=== PATIENT | female | born 2000 | race Caucasian/White ===

== ENCOUNTER → 2022-01-19 | Outpatient (CLI) | payer BC, OTHER | END | disposition home or self-care (01) | LOC: LABWHC1 19:22 | PROVIDERS: ATTEND Emergency Medicine | DX: Z20.822 Contact with and (suspected) exposure to COVID-19 (principal) | CPT/HCPCS: 87635 ==

== ENCOUNTER 2022-02-27 21:55 | Emergency (ER) | payer BC ==
--- NOTE | 2022-02-27 22:25 | ED ---
Chest Pain HPI - General Chief Complaint: Chest Pain Stated Complaint: Chest pain,sore throat Time Seen by Provider: 02/27/22 21:58 Source: patient, RN notes reviewed Mode of arrival: ambulatory Limitations: no limitations - History of Present Illness Initial Comments: This is a pleasant 21-year-old female presents with chest pressure which starts in her anterior chest and radiates through the back. Patient was concerned she might have COVID-19. She has been tested several times over the past 2 weeks. She states that 2 weeks ago she had 3 negative COVID-19 test and eventually decided that her symptoms were due to ALLERGIES. Patient states she now has had a sore throat for 3 days and now has felt chest pressure which has been present since yesterday. Constant, no alleviating or exacerbating factors. Negative outpatient COVID-19 test. Patient does have subdermal progesterone based control. Patient states she has not had a menstrual period since October having the device placed. Patient has no history of blood clots. No history of recent surgeries. No history of immobilization. Patient is a nonsmoker but does vape. No headache, no fever or chills, no changes in vision or hearing, no sore throat or difficulty with speech, no neck pain, SENSATION of shortness of breath, no abdominal pain, no nausea or vomiting, no changes in urination or bowel movements, no numbness or tingling, no extremity pain, no skin rashes or lesions. Past medical, surgical, social, and family history reviewed. - Related Data Allergies Allergy/AdvReac Type Severity Reaction Status Date / Time No Known Allergies Allergy Verified 02/27/22 22:00 Review of Systems ROS Statement: Those systems with pertinent positive or pertinent negative responses have been documented in the HPI. ROS Other: All systems not noted in ROS Statement are negative. EKG Findings - EKG Comments: EKG Findings:: EKG done at 2205 and read by the ED attending physician reveals rhythm with a rate of 87. Minimal voltage criteria for LVH patient does have poor R-wave progression with computerized Q-wave being red in V3 and V4 normal intervals. No comparison study. Past Medical History Past Medical History: No Reported History History of Any Multi-Drug Resistant Organisms: None Reported Past Surgical History: No Surgical Hx Reported Past Psychological History: No Psychological Hx Reported Smoking Status: Current every day smoker Past Alcohol Use History: Occasional Past Drug Use History: None Reported General Exam Limitations: no limitations General appearance: alert, in no apparent distress Head exam: Present: atraumatic, normocephalic, normal inspection Eye exam: Present: normal appearance, PERRL, EOMI. Absent: scleral icterus, conjunctival injection, periorbital swelling ENT exam: Present: normal exam, mucous membranes moist, normal external ear exam Neck exam: Present: normal inspection, full ROM. Absent: tenderness, meningismus, lymphadenopathy Respiratory exam: Present: normal lung sounds bilaterally, chest wall tenderness. Absent: respiratory distress, wheezes, rales, rhonchi, stridor, accessory muscle use, decreased breath sounds, prolonged expiratory Cardiovascular Exam: Present: regular rate, normal rhythm, normal heart sounds. Absent: systolic murmur, diastolic murmur, rubs, gallop, clicks GI/Abdominal exam: Present: soft, normal bowel sounds. Absent: distended, tenderness, guarding, rebound, rigid Extremities exam: Present: normal inspection, full ROM, normal capillary refill. Absent: tenderness, pedal edema, joint swelling, calf tenderness Back exam: Present: normal inspection Neurological exam: Present: alert, oriented X3, CN II-XII intact Psychiatric exam: Present: normal affect, normal mood Skin exam: Present: warm, dry, intact, normal color. Absent: rash Course Vital Signs 02/27/22 02/27/22 02/28/22 21:59 22:59 00:14 Temperature 98.8 F 98.6 F Pulse Rate 92 81 80 Respiratory 18 16 16 Rate Blood Pressure 132/89 139/94 132/91 O2 Sat by Pulse 98 98 Oximetry Chest Pain [facility] presents with nonspecific chest discomfort. Patient's x-ray was negative. EKG was nondiagnostic with minimal nonspecific changes. Troponin was negative. D-dimer was negative. Patient reproducible chest pain. Given the patient's age, low cardiac risk score, I think this is very unlikely to be cardiac related. Patient showed no evidence of infectious process. However viral infection is possible. Symptomology could be GI related. Anxiety is another possible cause. We also discussed where etiology such as autoimmune disease and other more rare disorders.. Patient was in no distress at discharge. We will have the patient follow up with her regular physician as an outpatient. Patient told to call tomorrow morning. All findings discussed with the patient. All results discussed. All questions answered. Patient was told to return to the ER for any signs or symptoms worsen. Told to return immediately if any other problems arise. All questions answered. Treatment plan discussed. Patient in agreement Every effort has been made to ensure accuracy of this dictation. However, due to the limitations of electronic medical records and dictation devices, errors in charting still occur. Color Printer Operator Dr. Rollins Disposition Clinical Impression: Acute chest wall pain, Atypical chest pain, Elevated blood pressure reading Disposition: HOME SELF-CARE Condition: Good Instructions (If sedation given, give patient instructions): Chest Pain (ED), DASH Eating Plan (ED), Chest Wall Pain (ED) Additional Instructions: Call tomorrow morning to make an appointment with your regular doctor. You should be rechecked and possibly have further testing done. Work on vaping cessation. Limit salt in diet. Follow-up with your regular physician as directed. Return to the ER immediately if any symptoms worsen, new symptoms arise, or any other problems develop. Is patient prescribed a controlled substance at d/c from ED?: No Referrals: Nonstaff,Physician [REFERRING] - 1-2 days Time of Disposition: 23:56
[2022-02-27 22:59] VITALS: RESP 16
--- NOTE | 2022-02-27 23:00 | XR ---
EXAMINATION TYPE: XR chest 2V DATE OF EXAM: 02/27/2022 COMPARISON: NONE HISTORY: Chest pain TECHNIQUE: 2 view FINDINGS: Heart and mediastinum are normal. Lungs are clear. Diaphragm is normal. Bony thorax is norm al. IMPRESSION: Normal chest.
[2022-02-27 23:14] LABS: Basophils # (A) 0.1 k/uL (0-0.2); Basophils % (A) 1 %; Eosinophils # (A) 0.2 k/uL (0-0.7); Eosinophils % (A) 2 %; HCT 46.2 % (34.0-46.0); HGB 15.1 gm/dL (11.4-16.0); Lymphocytes # (A) 3.1 k/uL (1.0-4.8); Lymphocytes % (A) 33 %; MCH 26.2 pg (25.0-35.0); MCHC 32.6 g/dL (31.0-37.0); MCV 80.4 fL (80.0-100.0); Mean Platelet Volume 6.8; Monocytes # (A) 0.5 k/uL (0-1.0); Monocytes % (A) 5 %; Neutrophils # (A) 5.4 k/uL (1.3-7.7); Neutrophils % (A) 58 %; Platelet Count 347 k/uL (150-450); RBC 5.75 m/uL (3.80-5.40); RDW 12.8 % (11.5-15.5); WBC 9.3 k/uL (3.8-10.6)
[2022-02-27 23:27] LABS: ALT 24 U/L (4-34); AST 33 U/L (14-36); African American GFR (CKD) >90 (>60 ml/min/1.73 sqM); Albumin 4.9 g/dL (3.5-5.0); Alkaline Phosphatase 80 U/L (38-126); Anion Gap 16 mmol/L; Blood Urea Nitrogen 13 mg/dL (7-17); Calcium 10.1 mg/dL (8.4-10.2); Carbon Dioxide 18 mmol/L (22-30); Chloride 105 mmol/L (98-107); Glucose 91 mg/dL (74-99); Non-African American GFR(CKD) >90 (>60 ml/min/1.73 sqM); Sodium 139 mmol/L (137-145); Total Bilirubin 0.9 mg/dL (0.2-1.3); Total Protein 8.1 g/dL (6.3-8.2)
[2022-02-27 23:35] LABS: Potassium 4.6 mmol/L (3.5-5.1)
[2022-02-28 00:16] VITALS: BP 132/91; PULSE 80; TEMP 98.6
== END 2022-02-28 00:20 | disposition home or self-care (01) ==
LOC: EC 21:55
DX: R07.89 Other chest pain (principal); R03.0 Elevated blood-pressure reading, without diagnosis of hypertension; F17.200 Nicotine dependence, unspecified, uncomplicated; Z20.822 Contact with and (suspected) exposure to COVID-19
CPT/HCPCS: 36415; 71046; 80053; 81025; 83735; 84484; 85025; 85379; 87081; 87430; 87635; 93005; 99285

== ENCOUNTER 2023-08-08 15:42 | Emergency (ER) | payer BC ==
[2023-08-08 16:06] VITALS: RESP 18; TEMP 99
--- NOTE | 2023-08-08 16:25 | ED ---
Chest Pain HPI - General Chief Complaint: Arrhythmia/Palpitations Stated Complaint: Heart Palp Time Seen by Provider: 08/08/23 15:59 Source: patient, RN notes reviewed Mode of arrival: ambulatory Limitations: no limitations - History of Present Illness Initial Comments: This is a 22-year-old female who presents to the emergency department for chest pain. States that it started around 11 AM. She was not doing anything when the pain started. States that it is sharp and on the left side of her chest. It is painful when she takes a deep breath. She has minor shortness of breath and dizziness as well. She has had this happen before, but is unsure why. Denies any personal cardiac history. Reports a family history of cardiac issues, but is unsure if this is premature coronary artery disease. She has not yet taken anything for her symptoms. MD Complaint: chest pain - Related Data Previous Rx's Medication Instructions Recorded Ibuprofen 800 mg PO Q8H PRN #30 tab 08/08/23 methocarbamoL [Robaxin-750] 1,500 mg PO TID PRN #30 tab 08/08/23 Allergies Allergy/AdvReac Type Severity Reaction Status Date / Time No Known Allergies Allergy Verified 08/08/23 15:49 Review of Systems ROS Statement: Those systems with pertinent positive or pertinent negative responses have been documented in the HPI. ROS Other: All systems not noted in ROS Statement are negative. Past Medical History Past Medical History: No Reported History History of Any Multi-Drug Resistant Organisms: None Reported Past Surgical History: No Surgical Hx Reported Past Psychological History: No Psychological Hx Reported Smoking Status: Current every day smoker Past Alcohol Use History: Occasional Past Drug Use History: None Reported General Exam Limitations: no limitations General appearance: alert, in no apparent distress Head exam: Present: atraumatic, normocephalic, normal inspection Respiratory exam: Present: normal lung sounds bilaterally, chest wall tenderness. Absent: respiratory distress, wheezes, rales, rhonchi, stridor Cardiovascular Exam: Present: regular rate, normal rhythm, normal heart sounds. Absent: systolic murmur, diastolic murmur, rubs, gallop, clicks GI/Abdominal exam: Present: soft, normal bowel sounds. Absent: distended, tenderness, guarding, rebound, rigid Neurological exam: Present: alert, oriented X3, CN II-XII intact Psychiatric exam: Present: normal affect, normal mood Skin exam: Present: warm, dry, intact, normal color. Absent: rash Course Vital Signs 08/08/23 08/08/23 15:46 18:30 Temperature 99.0 F Pulse Rate 91 75 Respiratory 18 18 Rate Blood Pressure 146/88 109/71 O2 Sat by Pulse 100 100 Oximetry Chest Pain MDM - MDM This is a 22 year old female who presents to the emergency department for chest pain. Was pt. sent in by a medical professional or institution? @ -No Did you speak to anyone other than the patient for history? @ -No Did you review nursing and triage notes? @ -Yes, and I agree, it is accurate with regards to the patient's symptoms. Were old charts reviewed? @ -No Differential Diagnosis? @ -Differential Chest Pain: Stable Angina, Unstable Angina, STEMI, NSTEMI Aortic Dissection, Pneumothorax, Musculoskeletal, Esophageal Spasm GERD, Cholecystitis, Pancreatitis, Zoster, this is not meant to be an all-inclusive list. EKG interpreted by me (3pts min.)? @ -EKG interpreted by me demonstrating the following: Sinus rhythm, ventricular rate 93 bpm, GA interval 148 ms, QRS duration 90 ms, QTc 406 ms. X-rays interpreted by me (1pt min.)? @ -Chest x-ray obtained, my interpretation identifies no localized consolidations or infiltrates. CT interpreted by me (1pt min.)? @ -Not obtained U/S interpreted by me (1pt. min.)? @ -Not obtained What testing was considered but not performed? (CT, X-rays, U/S, labs)? Why? @ -None What meds were considered but not given? Why? @ -None Did you discuss the management of the patient with other professionals? @ -No Did you reconcile home meds? @ -No Was smoking cessation discussed for >3mins.? @ -No Was critical care preformed (if so, how long)? @ -No Were there social determinants of health that impacted care today? How? (Homelessness, low income, unemployed, alcoholism, drug addiction, transportation, low edu. Level, literacy, decrease access to med. care, long-term, rehab)? @ -No Was there de-escalation of care discussed even if they declined? (Discuss DNR or withdrawal of care, Hospice)? @ -No What co-morbidities impacted this encounter? (DM, HTN, Smoking, COPD, CAD, Cancer, CVA, Hep., AIDS, mental health diagnosis, sleep apnea, morbid obesity)? @ -None Was patient admitted / discharged? @ -Discharged. Lab work reveals mild leukocytosis and was otherwise unremarkable. D-dimer and troponin negative. COVID, influenza, and RSV testing negative. Chest x-ray reveals no acute process. Symptoms likely musculoskeletal in nature or potentially related to pleurisy. Pain controlled in the emergency department and the patient was discharged home in stable condition. Prescription for ibuprofen and Robaxin provided with dosing instructions reviewed. Advised close follow-up with her primary care provider. Undiagnosed new problem with uncertain prognosis? @ -None Drug Therapy requiring intensive monitoring for toxicity (Heparin, Nitro, Insulin, Cardizem)? @ -None Were any procedures done? @ -None Diagnosis/symptom? @ -Atypical chest pain Acute, or Chronic, or Acute on Chronic? @ -Acute Uncomplicated (without systemic symptoms) or Complicated (systemic symptoms)? @ -Uncomplicated Side effects of treatment? interested in starting old @ -None Exacerbation, Progression, or Severe Exacerbation] @ -Not applicable Poses a threat to life or bodily function? @ -No Return precautions reviewed in depth, the patient is instructed to return to the emergency department with any new, worsening, or concerning symptoms. Patient verbalized understanding. This case was discussed in detail with the attending ED physician, Dr. Vickers. Presentation, findings, and treatment plan discussed in detail as well. Disposition Clinical Impression: Atypical chest pain Disposition: HOME SELF-CARE Instructions (If sedation given, give patient instructions): Noncardiac Chest Pain (ED) Additional Instructions: Return to the emergency department with any new, worsening, or concerning symptoms. Alternate with ibuprofen and Tylenol as needed for pain relief. You can take the Robaxin as 1 to 2 tablets up to 3-4 times daily. Be aware that this may make you drowsy. Follow up with your primary care provider in 1-2 days. Prescriptions: Ibuprofen 800 mg PO Q8H PRN #30 tab PRN Reason: Pain methocarbamoL [Robaxin-750] 1,500 mg PO TID PRN #30 tab PRN Reason: Pain Is patient prescribed a controlled substance at d/c from ED?: No Referrals: Gil Burleson DO [Primary Care Provider] - 1-2 days Time of Disposition: 19:06
[2023-08-08 17:20] LABS: Basophils # (A) 0.1 k/uL (0-0.2); Basophils % (A) 1 %; Eosinophils # (A) 0.2 k/uL (0-0.7); Eosinophils % (A) 2 %; HCT 42.5 % (34.0-46.0); HGB 14.2 gm/dL (11.4-16.0); Lymphocytes # (A) 4.2 k/uL (1.0-4.8); Lymphocytes % (A) 39 %; MCH 27.3 pg (25.0-35.0); MCHC 33.4 g/dL (31.0-37.0); MCV 81.6 fL (80.0-100.0); Mean Platelet Volume 6.7; Monocytes # (A) 0.4 k/uL (0-1.0); Monocytes % (A) 4 %; Neutrophils # (A) 5.9 k/uL (1.3-7.7); Neutrophils % (A) 54 %; Platelet Count 389 k/uL (150-450); RBC 5.21 m/uL (3.80-5.40); RDW 12.9 % (11.5-15.5)
[2023-08-08] MEDS: SODIUM CHLORIDE 0.9% 1,000 ML IV STA (17:34)
[2023-08-08] MEDS: KETOROLAC 15 MG/ML 1 ML VIAL IVP STA ×2 (17:34→18:35)
--- NOTE | 2023-08-08 17:48 | XR ---
EXAMINATION TYPE: XR chest 2V DATE OF EXAM: 08/08/2023 5:25 PM CLINICAL INDICATION:Female, 22 years old with history of Chest Pain; [facility] COMPARISON: Chest radiographs from 02/27/2022 TECHNIQUE: XR chest 2V Frontal and lateral views of the chest. FINDINGS: Lungs/Pleura: There is no evidence of pleural effusion, focal consolidation, or pneumothorax. Pulmonary vascularity: Unremarkable. Heart/mediastinum: Cardiomediastinal silhouette is unremarkable. Musculoskeletal: No acute osseous pathology. IMPRESSION: No acute cardiopulmonary disease/process.
[2023-08-08 18:18] LABS: ALT 23 U/L (4-34); AST 40 U/L (14-36); African American GFR (CKD) >90 (>60 ml/min/1.73 sqM); Albumin 4.5 g/dL (3.5-5.0); Alkaline Phosphatase 77 U/L (38-126); Anion Gap 9 mmol/L; Blood Urea Nitrogen 16 mg/dL (7-17); Calcium 9.9 mg/dL (8.4-10.2); Carbon Dioxide 20 mmol/L (22-30); Chloride 110 mmol/L (98-107); Glucose 86 mg/dL (74-99); Lipase 112 U/L (23-300); Magnesium 1.9 mg/dL (1.6-2.3); Non-African American GFR(CKD) >90 (>60 ml/min/1.73 sqM); Sodium 139 mmol/L (137-145); Total Bilirubin 0.7 mg/dL (0.2-1.3); Total Protein 7.9 g/dL (6.3-8.2)
[2023-08-08 18:19] LABS: Potassium 4.5 mmol/L (3.5-5.1)
[2023-08-08] MEDS: ACETAMINOPHEN TAB 500 MG TAB PO STA (18:31)
[2023-08-08] MEDS: ORPHENADRINE 30 MG/ML 2 ML VIAL IVP STA (18:31)
[2023-08-08 18:40] VITALS: BP 109/71; PULSE 75
[2023-08-08 19:09] LABS: HCG,Qualitative Serum Not Detected
[2023-08-08] MEDS: DEXAMETHASONE SOD PHOSPHATE 10 MG/ML 1 ML VIAL IVP STA (19:21)
[2023-08-08] MEDS: IBUPROFEN 600 MG STARTER PACK 4 TAB BTL PO STA (19:22)
[2023-08-08] MEDS: ACET/COD 300 MG/30 MG STARTER PACK 6 TAB BTL PO STA (19:22)
== END 2023-08-08 19:24 | disposition home or self-care (01) ==
LOC: EC 15:42
DX: R07.89 Other chest pain (principal); F17.200 Nicotine dependence, unspecified, uncomplicated; Z20.822 Contact with and (suspected) exposure to COVID-19
CPT/HCPCS: 36415; 93005; 85379; 80053; 83690; 83735; 84484; 85025; 84703; 87636; 71046; 99285; 96374; 96375 ×2; 96376; 96361; J1100; J2360; J1885

== ENCOUNTER → 2023-11-01 | Outpatient (CLI) | payer OTHER ==
--- NOTE | 2023-11-01 15:39 | XR ---
EXAMINATION TYPE: XR knee complete RT DATE OF EXAM: 11/01/2023 COMPARISON: None HISTORY: Pain TECHNIQUE: 3 view right knee FINDINGS: Joint spaces are preserved. No joint effusion is evident. No acute fracture or dislocation is evident. Soft tissues are unremarkable. Follow up exams can be performed 7-10 days from acute trauma for continued pain. IMPRESSION: 1. No acute osseous abnormality right knee
== END | disposition home or self-care (01) ==
LOC: RADXRMAIN 15:04
PROVIDERS: ATTEND Emergency Medicine
DX: S83.91XA Sprain of unspecified site of right knee, initial encounter (principal); X58.XXXA Exposure to other specified factors, initial encounter

== ENCOUNTER → 2023-11-16 | Outpatient (CLI) | payer OTHER ==
--- NOTE | 2023-11-16 10:31 | MR ---
EXAMINATION TYPE: MR knee RT wo con DATE OF EXAM: 11/16/2023 COMPARISON: X-ray 11/09/2023 HISTORY: Pain TECHNIQUE: Multiplanar, multisequence imaging of the right knee is performed without IV contrast. FINDINGS: MEDIAL MENISCUS: There is abnormal signal within the posterior horn of the medial meniscus compatible with tear. LATERAL MENISCUS: Anterior and posterior horns are intact without tear. CRUCIATE LIGAMENTS: The anterior and posterior cruciate ligaments are intact and unremarkable. COLLATERAL LIGAMENTS: The medial collateral ligament and lateral collateral ligament complex are inta ct and unremarkable. EXTENSOR MECHANISM: Visualized quadriceps and patellar tendons are intact. EFFUSION: No significant suprapatellar joint effusion. POPLITEAL CYST: No popliteal/cooper cyst. TRICOMPARTMENT SPACES: Joint space is maintained. No erosive changes. CARTILAGE: Maintained BONE MARROW SIGNAL: Focal area of reduced signal T1 and high signal involving the distal medial femur may represent a tiny bone cyst. No sizable area of marrow edema or contusion. Reactive marrow change s noted. IMPRESSION: Posterior horn medial meniscal tear.
== END | disposition home or self-care (01) ==
LOC: RADMRIMAIN 09:37
PROVIDERS: ATTEND Orthopaedic Surgery
DX: M23.321 Other meniscus derangements, posterior horn of medial meniscus, right knee (principal)

== ENCOUNTER → 2023-12-04 | Outpatient (CLI) | payer OTHER ==
[2023-12-04 18:20] LABS: Basophils # (A) 0.06 X 10*3/uL (0.00-0.10); Basophils % (A) 0.6 %; Eosinophils # (A) 0.17 X 10*3/uL (0.04-0.35); Eosinophils % (A) 1.6 %; HCT 44.8 % (37.2-46.3); HGB 13.8 g/dL (12.0-15.0); Lymphocytes # (A) 3.46 X 10*3/uL (0.90-5.00); Lymphocytes % (A) 32.5 %; MCHC 30.8 g/dL (32.0-37.0); MCV 84.4 FL (80.0-97.0); Mean Platelet Volume 9.8 FL (9.5-12.2); Monocytes # (A) 0.55 X 10*3/uL (0.20-1.00); Monocytes % (A) 5.2 %; NRBC Per 100 WBC 0 X 10*3/uL (0.00-0.01); Neutrophils # (A) 6.37 X 10*3/uL (1.80-7.70); Neutrophils % (A) 59.8 %; Platelet Count 388 X 10*3/uL (140-440); RBC 5.31 X 10*6/uL (4.10-5.20); RDW 12.7 % (11.5-14.5); WBC 10.64 X 10*3/uL (4.50-10.00)
[2023-12-04 19:49] LABS: BUN/Creat Ratio 15.29 Ratio (12.00-20.00); Blood Urea Nitrogen 10.7 mg/dL (9.0-27.0); Calcium 10.1 mg/dL (8.7-10.3); Carbon Dioxide 21.1 mmol/L (21.6-31.8); Chloride 103 mmol/L (96-109); Glucose 98 mg/dL (70-110); Potassium 4.3 mmol/L (3.5-5.5); Sodium 138 mmol/L (135-145)
== END | disposition home or self-care (01) ==
LOC: LABPAT 13:07
PROVIDERS: ATTEND Orthopaedic Surgery
DX: Z01.812 Encounter for preprocedural laboratory examination (principal); M23.91 Unspecified internal derangement of right knee
CPT/HCPCS: 80048; 85025

== ENCOUNTER 2023-12-15 09:06 | Day surgery (SDC) | payer OTHER ==
--- NOTE | 2023-12-14 08:20 | P.HPOR ---
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 She's had medial pain with weightbearing activities ever since. She is using crutches. She denies previous problems. She tried medications without much relief. Currently she is off work. Review of Systems per HPI Past Medical History Past Medical History: No Reported History Additional Past Medical History / Comment(s): Obesity History of Any Multi-Drug Resistant Organisms: None Reported Past Surgical History: No Surgical Hx Reported Additional Past Surgical History / Comment(s): wisdom teeth extracted Past Anesthesia/Blood Transfusion Reactions: No Reported Reaction Smoking Status: Former smoker - Past Family History Father Family Medical History: No Reported History Medications and Allergies Home Medications Medication Instructions Recorded Confirmed Type Fiber Gummy(Unk) 1 tab PO DAILY 12/13/23 12/13/23 History Wellbutrin(Unk) 1 tab PO DIRECTED 12/13/23 12/13/23 History Allergies Allergy/AdvReac Type Severity Reaction Status Date / Time No Known Allergies Allergy Verified 12/13/23 09:00 Physical Examination - Knee right Appearance: effusion Effusion grade: grade 2 Tenderness with palpation: anterior, medial Pain: throughout ROM Gait: limping ROM: extension: -10 degrees ROM: flexion: 100 degrees Crepitus with motion: Yes Strength: extension: 5/5 Strength: flexion: 5/5 Meniscal tests: medial meniscal tests: positive, medial joint line pain: positive Results The patient is a well-developed well-nourished female approximately 5 foot 9, 280 pounds of endomorphic habitus. HEENT exam is nonfocal, neck supple. She has painless passive motion of the right hip. Straight leg raise is negative. She's tender about the medial joint line of the right knee. Collaterals are stable, Holden was negative, Reynaldo's elicits medial pain. Her distal neurovascular appears intact in the right lower extremity. - Diagnostic results Knee MRI: image reviewed (Right knee MRI shows evidence of a posterior medial meniscal tear.) Assessment and Plan Assessment: Internal derangement right knee/symptomatic medial meniscal tear Plan: I talked to the patient at length regarding her condition along with treatment options. At this point she is quite symptomatic after this acute injury. After a thorough discussion she optsto proceed with surgery. We'll proceed arthroscopic evaluation of the right knee with partial medial meniscectomy. Risks and benefits were discussed at length in layman's terms. We will likely perform that as an outpatient procedure.
[~2023-12-15 09:06] MED LIST: MIDAZOLAM 2 MG/2 ML VIAL IV PRN; SCOPOLAMINE 1 MG/72 HR PATCH TRANSDERM ONE
[2023-12-15] MEDS: IV FLUID CONTINUATION 1,000 ML IV ONE (10:00)
[2023-12-15] MEDS: LACTATED RINGERS 1,000 ML IV SCH (10:00)
[2023-12-15] MEDS: ONDANSETRON 4 MG/2 ML VIAL IVP ONE (10:14)
[2023-12-15] MEDS: DEXAMETHASONE SOD PHOSPHATE 4 MG/ML 1 ML VIAL IV ONE (10:14)
[2023-12-15] MEDS ORDERED: KETOROLAC 15 MG/ML 1 ML VIAL ONE (10:27)
[2023-12-15] MEDS ORDERED: SUCCINYLCHOLINE CHLORIDE 200 MG/10 ML VIAL IV ONE (10:27)
[2023-12-15] MEDS ORDERED: LIDOCAINE 1% INJ 10MG/ML (20 ML MDV) ONE (10:27)
[2023-12-15] MEDS ORDERED: fentaNYL (PF) 50 MCG/ML 2 ML AMP ONE (10:27)
[2023-12-15] MEDS ORDERED: MIDAZOLAM 2 MG/2 ML VIAL ONE (10:27)
[2023-12-15] MEDS ORDERED: PROPOFOL 10 MG/ML 20 ML VIAL IV ONE (10:27)
[2023-12-15] MEDS: ceFAZolin 3 GM in SODIUM CHLORIDE 0.9% 100 ML IVPB PRN (10:32)
--- NOTE | 2023-12-15 11:12 | P.OP ---
Date of Procedure: 12/15/23 Preoperative Diagnosis: Right knee internal derangement Postoperative Diagnosis: Right knee posterior medial meniscal tear Procedure(s) Performed: Right knee arthroscopic partial medial meniscectomy Anesthesia: SARANA Surgeon: Marcelo Sher Estimated Blood Loss (ml): 10 Pathology: none sent Condition: stable Disposition: PACU Indications for Procedure: The patient is a 22-year-old female who presents with progressive right knee pain and mechanical symptoms after a recent injury. A discussion of the risks and benefits of operative intervention versus continued conservative measures was made with the patient. She opted to proceed with surgery. Operative risks include infection, neurovascular injury, development of blood clots, possible incomplete resolution of symptoms, possible worsening of symptoms and need for subsequent procedures was discussed. Informed consent was obtained. Operative Findings: As below Description of Procedure: The patient was brought to the operating room, and after induction of general an esthesia examined the right knee. Collaterals were stable, Holden was negative, and posterior drawer was negative. The right lower extremity was prepped and draped in a normal fashion. A superior lateral portal was made through a 3 mm skin incision superior and lateral to the patella. This was used for outflow. A lateral portal was made through a 5 mm vertical skin incision lateral to the patella tendon above the joint line. Diagnostic arthroscopy was performed. On inspection of the medial compartment, a small flap tear involving the posterior most aspect of the medial meniscus in the white-junction was noted. This was debrided back to stable base with straight baskets and a motorized shaver. The remaining medial meniscus was stable and intact. On inspection of the notch, the anterior cruciate ligament appeared to be intact. On inspection of the lateral compartment, no significant meniscal pathology was noted.. On inspection of the patellofemoral articulation, no significant cartilage pathology was noted. The gutters were clear debris. The knee was then thoroughly irrigated. The portals were closed with Steri-Strips. A sterile dressing was applied in addition to a compression stocking. The patient was awoken from general anesthesia and transferred to recovery room in good condition. Blood loss was estimated at 10 mL. No complications were incurred.
[2023-12-15 11:27] VITALS: TEMP 97.1
[2023-12-15] MEDS: HYDROcodone/APAP 5-325MG 1 EACH TAB PO STA (12:03)
[2023-12-15 12:27] VITALS: RESP 16
[2023-12-15] MEDS: HYDROmorphone 0.5 MG/0.5 ML SYRINGE IVP PRN (13:07)
[2023-12-15 13:12] VITALS: PULSE 81
[2023-12-15 13:46] VITALS: BP 116/78
== END 2023-12-15 14:19 | disposition home or self-care (01) ==
LOC: OR 09:06
PROVIDERS: ATTEND Orthopaedic Surgery
DX: S83.241A Other tear of medial meniscus, current injury, right knee, initial encounter (principal); E66.9 Obesity, unspecified; F41.9 Anxiety disorder, unspecified; F32.A Depression, unspecified; F12.90 Cannabis use, unspecified, uncomplicated; Z79.899 Other long term (current) drug therapy; Z87.891 Personal history of nicotine dependence; X50.1XXA Overexertion from prolonged static or awkward postures, initial encounter
CPT/HCPCS: 84703; 29881; J2250; J0330; J1100; J0690; J2405; J2001; J3010; J1885; J2704; J1170

== ENCOUNTER 2024-05-22 04:12 | Emergency (ER) | payer BC ==
--- NOTE | 2024-05-22 05:06 | ED ---
General Adult HPI - General Source: patient, RN notes reviewed, old records reviewed Mode of arrival: ambulatory Limitations: no limitations <Kev Espitia - Last Filed: 05/22/24 06:53> <Randa Rollins - Last Filed: 05/22/24 08:39> - General Chief complaint: Vaginal Bleeding Stated complaint: Vaginal Bleeding - 8 wks preg Time Seen by Provider: 05/22/24 04:21 - History of Present Illness Initial comments: Is a 23-year-old female who presents emergency department with vaginal bleeding. Patient is G1, P0. Approximately 8 weeks . Has yet to follow or receive any workup for her current . States she has been having some vaginal spotting as well as abdominal cramping since Monday. 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 Overnight she began having more heavy bleeding with some clots. No history of abdominal surgeries, bleeding disorders, clotting disorders. No prior ultrasound or workup for this . Presents for further evaluation. Was originally seen at another ER, [facility] however they do not have ultrasound available and was sent here for further evaluation.No history of STDs. No urinary complaints. No constipation or diarrhea. Patient is not on blood thinners. (Kev Espitia) - Related Data Home Medications Medication Instructions Recorded Confirmed Fiber Gummy(Unk) 1 tab PO DAILY 12/13/23 12/13/23 Wellbutrin(Unk) 1 tab PO DIRECTED 12/13/23 12/13/23 Previous Rx's Medication Instructions Recorded HYDROcodone/APAP 5-325MG [[place] 1 tab PO Q6HR PRN #18 tab 12/15/23 5-325] Allergies Allergy/AdvReac Type Severity Reaction Status Date / Time No Known Allergies Allergy Verified 05/22/24 04:15 Review of Systems ROS Other: All systems not noted in ROS Statement are negative. <Kev Espitia - Last Filed: 05/22/24 06:53> ROS Other: All systems not noted in ROS Statement are negative. <Randa Rollins - Last Filed: 05/22/24 08:39> ROS Statement: Those systems with pertinent positive or pertinent negative responses have been documented in the HPI. Review of Systems: CONST: Denies fever EYES: Denies blurry vision ENT: Denies nasal congestion C/V: Denies Chest pain RESP: Denies shortness of breath GI: Denies abdominal pain : Endorses vaginal bleeding SKIN: Denies rash. MSK: Denies joint pain. NEURO: Denies headache (Kev Espitia) Past Medical History Past Medical History: No Reported History Additional Past Medical History / Comment(s): Obesity History of Any Multi-Drug Resistant Organisms: None Reported Past Surgical History: No Surgical Hx Reported Additional Past Surgical History / Comment(s): wisdom teeth extracted Past Anesthesia/Blood Transfusion Reactions: No Reported Reaction Past Psychological History: No Psychological Hx Reported Smoking Status: Current every day smoker Past Alcohol Use History: None Reported Past Drug Use History: None Reported - Past Family History Father Family Medical History: No Reported History <Kev Espitia - Last Filed: 05/22/24 06:53> General Exam Limitations: no limitations <Kev Espitia - Last Filed: 05/22/24 06:53> - General Exam Comments Initial Comments: General: Appears anxious HEAD: Normal with no signs of head trauma. EYES: EOMI ENT: Hearing grossly intact, normal oropharynx. RESPIRATORY: Clear breath sounds bilaterally. No wheezes, rales, or rhonchi. C/V: Regular rate and rhythm. S1 and S2 auscultated, no edema, peripheral pulses 2+ and intact throughout ABD: Patient has mild lower quadrant abdominal discomfort. No guarding or rebound tenderness. Abdomen is otherwise soft, nondistended. EXT: Normal range of motion, no obvious deformity SKIN: No rashes or lesions observed on exposed skin. NEURO: Oriented x 4. (Kev Espitia) Course Vital Signs 05/22/24 05/22/24 04:15 06:17 Temperature 98.6 F 98.2 F Pulse Rate 101 H 76 Respiratory 16 16 Rate Blood Pressure 140/100 117/69 O2 Sat by Pulse 95 99 Oximetry Medical Decision Making - Lab Data Result diagrams: 05/22/24 05:06 05/22/24 05:06 <Kev Espitia - Last Filed: 05/22/24 06:53> - Lab Data Result diagrams: 05/22/24 05:06 05/22/24 05:06 <Randa Rollins - Last Filed: 05/22/24 08:39> - Medical Decision Making Was pt. sent in by a medical professional or institution (, PA, CELL RELINER, urgent care, hospital, or shelter...) When possible be specific @ -Sent from [facility] for pelvic ultrasound as they do not have the capabilities other facility. Did you speak to anyone other than the patient for history (EMS, parent, family, police, friend...)? What history was obtained from this source @ -No Did you review nursing and triage notes (agree or disagree)? Why? @ -I reviewed and agree with nursing and triage notes Were old charts reviewed (outside hosp., previous admission, EMS record, old EKG, old radiological studies, urgent care reports/EKG's, shelter records)? Report findings @ -No old charts were reviewed Differential Diagnosis (chest pain, altered mental status, abdominal pain women, abdominal pain men, vaginal bleeding, weakness, fever, dyspnea, syncope, headache, dizziness, GI bleed, back pain, seizure, CVA, palpatations, mental health, musculoskeletal)? @ -Miscarriage, dysfunctional uterine bleeding, threatened miscarriage, this list is not all inclusive. EKG interpreted by me (3pts min.). @ -None done X-rays interpreted by me (1pt min.). @ -None done CT interpreted by me (1pt min.). @ -None done U/S interpreted by me (1pt. min.). @ -Pending What testing was considered but not performed or refused? (CT, X-rays, U/S, labs)? Why? @ -None What meds were considered but not given or refused? Why? @ -None Did you discuss the management of the patient with other professionals (professionals i.e. , PA, CELL RELINER, lab, RT, psych nurse, social worker psychiatric, cathode ray tube assembler, teacher, freedom of information officer, medical case worker)? Give summary @ -No Was smoking cessation discussed for >3mins.? @ -No Was critical care preformed (if so, how long)? @ -No Were there social determinants of health that impacted care today? How? (Homelessness, low income, unemployed, alcoholism, drug addiction, transportation, low edu. Level, literacy, decrease access to med. care, senior living, rehab)? @ -No Was there de-escalation of care discussed even if they declined (Discuss DNR or withdrawal of care, Hospice)? DNR status @ -No What co-morbidities impacted this encounter? (DM, HTN, Smoking, COPD, CAD, Cancer, CVA, ARF, Chemo, Hep., AIDS, mental health diagnosis, sleep apnea, morbid obesity)? @ -None Was patient admitted / discharged? Hospital course, mention meds given and route, prescriptions, significant lab abnormalities, going to OR and other pertinent info. @ -Patient is G1, P0 presenting with vaginal bleeding in . Worse today. Has been spotting since Monday. No prior workup. Approximately 8 weeks . We will obtain vaginal bleeding workup and ultrasound will be called in to obtain ultrasound over concern for possible ectopic . Possible miscarriage as well. Patient was in agreement this plan. She already received 1 g of Tylenol at other facility and declines any further analgesia. We will obtain basic labs, type and screen, and provide 1 L fluid bolus in addition to the pelvic ultrasound. Patient was in agreement this plan. Vital signs are within acceptable limits. Patient signed out to Dr. Rollins pending results of workup. Undiagnosed new problem with uncertain prognosis? @ -No Drug Therapy requiring intensive monitoring for toxicity (Heparin, Nitro, Insulin, Cardizem)? @ -No Were any procedures done? @ -No (Kev Espitia) - Lab Data Lab Results 05/22/24 05/22/24 05/22/24 Range/Units 05:06 05:06 05:06 WBC 6.6 (3.8-10.6) k/uL RBC 4.31 (3.80-5.40) m/uL Hgb 11.7 (11.4-16.0) gm/dL Hct 34.7 (34.0-46.0) % MCV 80.6 (80.0-100.0) fL MCH 27.1 (25.0-35.0) pg MCHC 33.6 (31.0-37.0) g/dL RDW 12.6 (11.5-15.5) % Plt Count 138 L (150-450) k/uL MPV 7.5 Neutrophils % 57 % Lymphocytes % 33 % Monocytes % 6 % Eosinophils % 2 % Basophils % 1 % Neutrophils # 3.8 (1.3-7.7) k/uL Lymphocytes # 2.2 (1.0-4.8) k/uL Monocytes # 0.4 (0-1.0) k/uL Eosinophils # 0.1 (0-0.7) k/uL Basophils # 0.0 (0-0.2) k/uL PT (10.0-12.5) sec INR (<1.2) APTT (22.0-30.0) sec Sodium 136 L (137-145) mmol/L Potassium 4.8 (3.5-5.1) mmol/L Chloride 107 (98-107) mmol/L Carbon Dioxide 19 L (22-30) mmol/L Anion Gap 10 mmol/L BUN 11 (7-17) mg/dL Creatinine 0.61 (0.52-1.04) mg/dL Est GFR (CKD-EPI)AfAm >90 (>60 ml/min/1.73 sqM) Est GFR (CKD-EPI)NonAf >90 (>60 ml/min/1.73 sqM) Glucose 93 (74-99) mg/dL Calcium 9.8 (8.4-10.2) mg/dL Total Bilirubin 1.0 (0.2-1.3) mg/dL AST 38 H (14-36) U/L ALT 22 (4-34) U/L Alkaline Phosphatase 53 (38-126) U/L Total Protein 7.5 (6.3-8.2) g/dL Albumin 4.4 (3.5-5.0) g/dL HCG, Quant 7.9 mIU/mL Urine Color Light Red Urine Appearance Clear (Clear) Urine pH 5.0 (5.0-8.0) Ur Specific Wallace 1.017 (1.001-1.035) Urine Protein Trace H (Negative) Urine Glucose (UA) Negative (Negative) Urine Ketones Negative (Negative) Urine Blood Large H (Negative) Urine Nitrite Negative (Negative) Urine Bilirubin Negative (Negative) Urine Urobilinogen <2.0 (<2.0) mg/dL Ur Leukocyte Esterase Small H (Negative) Urine RBC >182 H (0-5) /hpf Urine WBC 22 H (0-5) /hpf Ur Squamous Epith Cells 1 (0-4) /hpf Urine Bacteria Rare H (None) /hpf Urine Mucus Rare H (None) /hpf Blood Type Blood Type Confirm Blood Type Recheck Bld Type Recheck Status Antibody Screen Spec Expiration Date 05/22/24 05/22/24 05/22/24 Range/Units 06:27 06:32 07:37 WBC (3.8-10.6) k/uL RBC (3.80-5.40) m/uL Hgb (11.4-16.0) gm/dL Hct (34.0-46.0) % MCV (80.0-100.0) fL MCH (25.0-35.0) pg MCHC (31.0-37.0) g/dL RDW (11.5-15.5) % Plt Count (150-450) k/uL MPV Neutrophils % % Lymphocytes % % Monocytes % % Eosinophils % % Basophils % % Neutrophils # (1.3-7.7) k/uL Lymphocytes # (1.0-4.8) k/uL Monocytes # (0-1.0) k/uL Eosinophils # (0-0.7) k/uL Basophils # (0-0.2) k/uL PT 10.7 (10.0-12.5) sec INR 1.0 (<1.2) APTT 23.1 (22.0-30.0) sec Sodium (137-145) mmol/L Potassium (3.5-5.1) mmol/L Chloride (98-107) mmol/L Carbon Dioxide (22-30) mmol/L Anion Gap mmol/L BUN (7-17) mg/dL Creatinine (0.52-1.04) mg/dL Est GFR (CKD-EPI)AfAm (>60 ml/min/1.73 sqM) Est GFR (CKD-EPI)NonAf (>60 ml/min/1.73 sqM) Glucose (74-99) mg/dL Calcium (8.4-10.2) mg/dL Total Bilirubin (0.2-1.3) mg/dL AST (14-36) U/L ALT (4-34) U/L Alkaline Phosphatase (38-126) U/L Total Protein (6.3-8.2) g/dL Albumin (3.5-5.0) g/dL HCG, Quant mIU/mL Urine Color Urine Appearance (Clear) Urine pH (5.0-8.0) Ur Specific [place] (1.001-1.035) Urine Protein (Negative) Urine Glucose (UA) (Negative) Urine Ketones (Negative) Urine Blood (Negative) Urine Nitrite (Negative) Urine Bilirubin (Negative) Urine Urobilinogen (<2.0) mg/dL Ur Leukocyte Esterase (Negative) Urine RBC (0-5) /hpf Urine WBC (0-5) /hpf Ur Squamous Epith Cells (0-4) /hpf Urine Bacteria (None) /hpf Urine Mucus (None) /hpf Blood Type O Positive Blood Type Confirm O Positive Blood Type Recheck No Previous Record Bld Type Recheck Status CABO Indicated Antibody Screen NEGATIVE Spec Expiration Date 05/25/20242326 Disposition <Kev Espitia - Last Filed: 05/22/24 06:53> Is patient prescribed a controlled substance at d/c from ED?: No Time of Disposition: 08:39 <Randa Rollins - Last Filed: 05/22/24 08:39> Clinical Impression: Threatened miscarriage Disposition: HOME SELF-CARE Condition: Stable Instructions (If sedation given, give patient instructions): Threatened Miscarriage (ED) Additional Instructions: Please come to the outpatient lab in 48 hours to have your labs redrawn. Your results will be sent to your [facility] COORDINATOR. Call to see if they have a sooner appointment. If not, continue to keep the appointment that you already have scheduled. You may continue to have some bleeding and cramping however if your pain gets severe or you have significant blood loss, return to the emergency department Referrals: Gil Burleson DO [Primary Care Provider] - 1-2 days
[2024-05-22] MEDS: SODIUM CHLORIDE 0.9% 1,000 ML IV STA (05:08)
[2024-05-22 06:18] VITALS: TEMP 98.2
[2024-05-22 06:27] LABS: Basophils % (A) 1 %; Eosinophils # (A) 0.1 k/uL (0-0.7); Eosinophils % (A) 2 %; HCT 34.7 % (34.0-46.0); HGB 11.7 gm/dL (11.4-16.0); Lymphocytes # (A) 2.2 k/uL (1.0-4.8); Lymphocytes % (A) 33 %; MCH 27.1 pg (25.0-35.0); MCHC 33.6 g/dL (31.0-37.0); MCV 80.6 fL (80.0-100.0); Mean Platelet Volume 7.5; Monocytes # (A) 0.4 k/uL (0-1.0); Monocytes % (A) 6 %; Neutrophils # (A) 3.8 k/uL (1.3-7.7); Neutrophils % (A) 57 %; Platelet Count 138 k/uL (150-450); RBC 4.31 m/uL (3.80-5.40); RDW 12.6 % (11.5-15.5); WBC 6.6 k/uL (3.8-10.6)
[2024-05-22 06:30] LABS: ALT 22 U/L (4-34); AST 38 U/L (14-36); African American GFR (CKD) >90 (>60 ml/min/1.73 sqM); Albumin 4.4 g/dL (3.5-5.0); Alkaline Phosphatase 53 U/L (38-126); Anion Gap 10 mmol/L; Blood Urea Nitrogen 11 mg/dL (7-17); Calcium 9.8 mg/dL (8.4-10.2); Carbon Dioxide 19 mmol/L (22-30); Chloride 107 mmol/L (98-107); Glucose 93 mg/dL (74-99); Non-African American GFR(CKD) >90 (>60 ml/min/1.73 sqM); Sodium 136 mmol/L (137-145); Total Protein 7.5 g/dL (6.3-8.2)
[2024-05-22 06:34] LABS: Potassium 4.8 mmol/L (3.5-5.1)
[2024-05-22 06:46] LABS: HCG,Quantitative Serum 7.9 mIU/mL
[2024-05-22 07:20] LABS: Appearance,Urine Clear (Clear); Bacteria,Urine Rare /hpf; Bilirubin,Urine Negative (Negative); Blood,Urine Large (Negative); Color,Urine Light Red; Glucose,Urine (UA) Negative (Negative); Ketones,Urine Negative (Negative); Leukocyte Esterase,Urine Small (Negative); Mucus,Urine Rare /hpf; Nitrite,Urine Negative (Negative); Protein,Urine Trace (Negative); RBC,Urine >182 /hpf (0-5); Specific Gravity,Urine 1.017 (1.001-1.035); Squamous Epithelial Cell,Urine 1 /hpf (0-4); Urobilinogen,Urine <2.0 mg/dL (<2.0); WBC,Urine 22 /hpf (0-5)
--- NOTE | 2024-05-22 08:15 | US ---
EXAMINATION TYPE: Transabdominal DATE OF EXAM: 05/22/2024 5:50 AM COMPARISON: NONE CLINICAL INDICATION: Female, 23 years old with history of vaginal bleeding. 8 wk preg; Patient states 8 weeks , clots TECHNIQUE: Transabdominal (TA) with grayscale and color Doppler imaging including first trimester pre gnancy. FINDINGS: EXAM MEASUREMENTS: GESTATIONAL AGE / DATING Physician Established: Not yet established Dates by LMP: (8 weeks/3 days) Dates by First Scan: No previous this is first scan Dates by Current Scan for: No IUP seen at this time MATERNAL ANATOMY Uterus: 7.7 x 3.6 x 4.4cm. The endometrium measures 0.7cm Right Ovary: 2.8 x 1.6 x 1.6cm Left Ovary: 1.9 x 1.4 x 1.2cm Post CDS / Adnexa: wnl Presence of free fluid: no Presence of corpus luteal cyst: no Presence of subchorionic bleed: no No IUP seen at this time Date of LMP: 03/24/24 Beta HcG (if available): Not available at this time IMPRESSION: No evidence of intrauterine gestational sac, correlate with B-hCG. If positive, this could represent early , ectopic or spontaneous . Follow up pelvic ultrasound in 5-7 days and serial beta hCG studies are recommended. [facility], , 05/22/2024 8:12 AM
[2024-05-22 08:33] LABS: Partial Thromboplastin Time 23.1 sec (22.0-30.0); Prothrombin Time 10.7 sec (10.0-12.5)
[2024-05-22 09:33] VITALS: BP 142/92; PULSE 99; RESP 16
== END 2024-05-22 09:38 | disposition home or self-care (01) ==
LOC: EC 04:12
DX: O20.0 Threatened abortion (principal); O99.331 Smoking (tobacco) complicating pregnancy, first trimester; F17.200 Nicotine dependence, unspecified, uncomplicated; Z3A.08 8 weeks gestation of pregnancy
CPT/HCPCS: 36415; 76801; 80053; 81001; 84702; 85025; 85610; 85730; 86850; 86900; 86901; 96360; 99284

== ENCOUNTER → 2024-05-24 | Outpatient (CLI) | payer BC ==
--- NOTE | 2024-05-24 15:10 | US ---
EXAMINATION TYPE: Transabdominal DATE OF EXAM: 05/24/2024 2:57 PM COMPARISON: NONE CLINICAL INDICATION: Female, 23 years old with history of O20.9 HEMORRHAGE IN EARLY ; miscar riage. TECHNIQUE: Transvaginal (TV) and Transabdominal (TA) with grayscale and color Doppler imaging includi ng first trimester . FINDINGS: EXAM MEASUREMENTS: GESTATIONAL AGE / DATING Physician Established: Not yet established Dates by LMP: (8 weeks/5 days) EDC: 12/29/2024 Dates by First Scan: ( 8weeks/3 days) EDC: 12/29/2024 Dates by Current Scan for: No IUP seen at this time MATERNAL ANATOMY Uterus: 7.4 x 3.5 x 5.2 cm Right Ovary: 2.8 x 2.6 x 2.0 cm Left Ovary: obscured by bowel gas. Post CDS / Adnexa: wnl Presence of free fluid: no Presence of corpus luteal cyst: no Presence of subchorionic bleed: no IUP: No IUP seen at this time Beta HcG (if available): 4 IMPRESSION: No evidence of intrauterine gestational sac, in this patient with a positive B-hCG. Findings could re present a spontaneous versus ectopic . Serial beta hCG studies in close clinical fo llow-up recommended are recommended. [facility], , 05/24/2024 3:08 PM
== END | disposition home or self-care (01) ==
LOC: RADUSWWP 14:35
PROVIDERS: ATTEND Obstetrics & Gynecology
DX: O03.9 Complete or unspecified spontaneous abortion without complication (principal); Z3A.00 Weeks of gestation of pregnancy not specified
CPT/HCPCS: 76801; 76817

== ENCOUNTER → 2024-05-28 | Outpatient (CLI) | payer BC | END | disposition home or self-care (01) | LOC: LABWHC1 08:05 | PROVIDERS: ATTEND Specialist | DX: O03.9 Complete or unspecified spontaneous abortion without complication (principal) | CPT/HCPCS: 36415; 84703 ==